=== PATIENT | male | born 1980 | race Two or more races ===

== ENCOUNTER 2021-03-11 13:06 | Emergency (ER) | payer OTHER ==
[2021-03-11 13:21] VITALS: BP 142/89; PULSE 98; TEMP 97.6; BMI 28.3
[2021-03-11] MEDS ORDERED: DIPHTH,PERTUSS(ACELL),TET 0.5 ML DISP.SYRIN IM ONE ×2 (13:47→13:57)
== END 2021-03-11 15:05 | disposition home or self-care (01) ==
LOC: JERFT 13:06
PROC: 3E0234Z Introduction of Serum, Toxoid and Vaccine into Muscle, Percutaneous Approach (ICD-10-PCS; principal; 2021-03-11)
DX: S61.412A Laceration without foreign body of left hand, initial encounter (principal); W25.XXXA Contact with sharp glass, initial encounter
CPT/HCPCS: 90715; 99284-25